=== PATIENT | female | born 1975 | race Two or more races ===

== ENCOUNTER 2017-02-27 19:44 | Emergency (ER) | payer OTHER ==
[2017-02-27 19:49] VITALS: BP 114/71; PULSE 80; TEMP 97.7; BMI 34.3
--- NOTE | 2017-02-27 19:51 | PDOC ---
Rapid Medical Evaluation Chief Complaint: Chest Pain Time Seen by Provider: 02/27/17 19:47 Medical Evaluation: Allergies Allergy/AdvReac Type Severity Reaction Status Date / Time No Known Allergies Allergy Verified 02/27/17 19:46 02/27/17 19:49 Healthy 41 year old female presenting with one week of constant chest pain radiating to the right arm, associated with nausea and "sudden headaches." Does not seem related to exertion. Describes pain as burning, pinching. V/s unremarkable. -EKG -CXR -Cardiac labs, lipase -To Main ED for further evaluation
[2017-02-27 20:34] LABS: BASOPHIL 0.6 % (0-2.0); EOSINOPHIL 3.9 % (0-4.5); MCH 29.1 pg (25.7-33.7); MCHC 32.4 g/dl (32.0-36.0); MEAN CELL VOLUME 89.7 fl (80-96); MEAN PLT VOLUME 8.5 fl (7.5-11.1); NEUTROPHILS 58.7 % (42.8-82.8); PLATELET COUNT 294 K/MM3 (134-434); RDW 13.4 % (11.6-15.6); WHITE BLOOD COUNT 10.4 K/mm3 (4.0-10.0)
[2017-02-27 20:38] LABS: URINE APPEARANCE CLEAR; URINE BILIRUBIN NEGATIVE (NEGATIVE); URINE COLOR LTYELLOW; URINE GLUCOSE (UA) NEGATIVE (NEGATIVE); URINE KETONE NEGATIVE (NEGATIVE); URINE LEUK ESTERASE NEGATIVE (NEGATIVE); URINE NITRITE NEGATIVE (NEGATIVE); URINE PROTEIN NEGATIVE (NEGATIVE); URINE UROBILINOGEN NEGATIVE E.U./dl (0.2-1.0)
[2017-02-27] MEDS ORDERED: RANITIDINE HCL 150 MG TABLET (FP) PO ONE (20:40)
[2017-02-27] MEDS ORDERED: MAG HYDROX/AL HYDROX/SIMETH 30 ML UNIT-DOSE CUP PO ONE (20:40)
[2017-02-27 20:43] LABS: URINE BLOOD 1+ (NEGATIVE)
--- NOTE | 2017-02-27 20:43 | PDOC ---
History of Present Illness - General History Source: Patient Exam Limitations: No Limitations - History of Present Illness Initial Comments: 02/27/17 20:44 The patient is a 41 year old female, LMP Jan 20 2017, with no significant past medical history, who presents to the ER with chest discomfort for one week. Patient describes the discomfort as a burning sensation. She says she feels like a knife is pinching her chest. Patient says she occasionally has a sensation of itchiness that goes down to the right arm. Patient says she also has accompanied bitter taste in mouth with accompanied belching. Denies heart palpitations Denies diaphoresis Denies fever, chills, cough Denies abdominal pain, nausea, vomiting Social Hx: Patient states she smoked half a pack of cigarettes a day and quit one month ago. Patient says she smokes during stress. <Marylou Farooq - Last Filed: 02/27/17 20:55> <Lauro Motley - Last Filed: 02/27/17 21:17> <Heidi Stanley - Last Filed: 03/01/17 00:24> - General Chief Complaint: Chest Pain Stated Complaint: CHEST PAIN Time Seen by Provider: 02/27/17 19:47 Past History <Marylou Farooq - Last Filed: 02/27/17 20:55> <Lauro Motley - Last Filed: 02/27/17 21:17> - Past Medical History Other medical history: denies - Immunization History Immunization Up to Date: Yes - Psycho/Social/Smoking Cessation Hx Suicidal Ideation: No Smoking History: Former smoker Have you smoked in the past 12 months: Yes Number of Cigarettes Smoked Daily: 5 If you are a former smoker, when did you quit?: 1 month ago Information on smoking cessation initiated: No Hx Alcohol Use: No Drug/Substance Use Hx: No <Heidi Stanley - Last Filed: 03/01/17 00:24> - Past Medical History Allergies/Adverse Reactions: Allergies Allergy/AdvReac Type Severity Reaction Status Date / Time No Known Allergies Allergy Verified 02/27/17 19:46 Home Medications: Ambulatory Orders NK [No Known Home Medication] 02/28/17 Pantoprazole Sodium [Protonix -] 20 mg PO DAILY #14 tablet.ec 02/28/17 Abd/GI Specific PMHX - Complaint Specific PMHX Colitis: No Diverticulitis: No Gall Bladder Disease: No GERD: No Hepatitis: No Irritable Bowel Synd (IBS): No Pancreatitis: No GI Ulcer Disease: No <Heidi Stanley - Last Filed: 03/01/17 00:24> Review of Systems - Review of Systems Able to Perform ROS?: Yes Comments:: 02/27/17 20:44 CONSTITUTIONAL: Absent: fever, no chills, no fatigue EYES: Absent: visual changes ENT: Present: (+) bitter taste in mouth, belching Absent: ear pain, no sore throat CARDIOVASCULAR: Present: (+) chest discomfort Absent: no palpitations RESPIRATORY: Absent: cough, no SOB GI: Absent: abdominal pain, no nausea, no vomiting, no constipation, no diarrhea GENITOURINARY: Absent: dysuria, no frequency, no hematuria MUSCULOSKELETAL: Absent: back pain, no arthralgia, no myalgia SKIN: Absent: rash NEURO: Absent: headache <Uts,Marylou - Last Filed: 02/27/17 20:55> *Physical Exam - Vital Signs Last Vital Signs Temp Pulse Resp BP Pulse Ox 97.7 F 80 18 114/71 98 02/27/17 19:47 02/27/17 19:47 02/27/17 19:47 02/27/17 19:47 02/27/17 19:47 - Physical Exam Comments: 02/27/17 20:45 GENERAL: Well-appearing, well-nourished. No apparent distress. HEENT: Normocephalic, atraumatic. PERRL, EOM intact. CARDIOVASCULAR: Normal S1, S2. Regular rate and rhythm. PULMONARY: Clear to auscultation bilaterally. ABDOMEN: Soft, non-distended, non-tender. EXTREMITIES: Normal ROM in all four extremities. No gross deformities. SKIN: Warm, dry. No rash NEUROLOGICAL: No focal neurological deficits. <Uts,Marylou - Last Filed: 02/27/17 20:55> - Vital Signs Last Vital Signs Temp Pulse Resp BP Pulse Ox 97.7 F 80 18 114/71 98 02/27/17 19:47 02/27/17 19:47 02/27/17 19:47 02/27/17 19:47 02/27/17 19:47 <Lauro Motley - Last Filed: 02/27/17 21:17> - Vital Signs Last Vital Signs Temp Pulse Resp BP Pulse Ox 97.7 F 80 18 114/71 98 02/27/17 19:47 02/27/17 19:47 02/27/17 19:47 02/27/17 19:47 02/27/17 19:47 <Heidi Stanley - Last Filed: 03/01/17 00:24> ED Treatment Course - LABORATORY CBC & Chemistry Diagram: 02/27/17 20:20 02/27/17 20:20 - ADDITIONAL ORDERS Additional order review: Laboratory Results 02/27/17 20:20 Urine Color Ltyellow Urine Appearance Clear Urine pH 5.0 Urine Protein Negative Urine Glucose (UA) Negative Urine Ketones Negative Urine Blood 1+ H Urine Nitrite Negative Urine Bilirubin Negative Urine Urobilinogen Negative Ur Leukocyte Esterase Negative 02/27/17 20:20 RBC 4.05 MCV 89.7 MCHC 32.4 RDW 13.4 MPV 8.5 Neutrophils % 58.7 Lymphocytes % 30.0 Monocytes % 6.8 Eosinophils % 3.9 Basophils % 0.6 <UtsMarylou - Last Filed: 02/27/17 20:55> - LABORATORY CBC & Chemistry Diagram: 02/27/17 20:20 02/27/17 20:20 - ADDITIONAL ORDERS Additional order review: Laboratory Results 02/27/17 02/27/17 20:20 20:20 INR 1.04 Urine Color Ltyellow Urine Appearance Clear Urine pH 5.0 Urine Protein Negative Urine Glucose (UA) Negative Urine Ketones Negative Urine Blood 1+ H Urine Nitrite Negative Urine Bilirubin Negative Urine Urobilinogen Negative Ur Leukocyte Esterase Negative Urine RBC 3 Urine WBC 3 Ur Epithelial Cells Rare Urine Bacteria Rare Urine Mucus Rare Urine HCG, Qual Negative 02/27/17 20:20 RBC 4.05 MCV 89.7 MCHC 32.4 RDW 13.4 MPV 8.5 Neutrophils % 58.7 Lymphocytes % 30.0 Monocytes % 6.8 Eosinophils % 3.9 Basophils % 0.6 - RADIOLOGY Radiology Studies Ordered: 02/27/17 21:17 CHEST X RAY Impression: Normal Chest Reported by Cristian Franco <Lauro Motley - Last Filed: 02/27/17 21:17> - LABORATORY CBC & Chemistry Diagram: 02/27/17 20:20 02/27/17 20:20 - ADDITIONAL ORDERS Additional order review: 02/27/17 20:20 RBC 4.05 MCV 89.7 MCHC 32.4 RDW 13.4 MPV 8.5 Neutrophils % 58.7 Lymphocytes % 30.0 Monocytes % 6.8 Eosinophils % 3.9 Basophils % 0.6 <Heidi Stanley - Last Filed: 03/01/17 00:24> Medical Decision Making - Medical Decision Making 03/01/17 00:23 41-year-old female who presented with atypical chest pain and also complained of burning over the past several days in her sternal area. She had 2 sets of negative cardiac enzymes. Her EKG did not show any acute signs of ischemia. She was started on PPIs and sent to her primary care physician for further GI workup <Heidi Stanley - Last Filed: 03/01/17 00:24> *DC/Admit/Observation/Transfer - Attestations Scribe Attestion: 02/27/17 20:45 Documentation prepared by Marylou Farooq, acting as pediatric medical assistant for Heidi Stanley MD. <Marylou Farooq - Last Filed: 02/27/17 20:55> - Attestations Scribe Attestion: 02/27/17 21:17 Documentation prepared by Lauro Motley, acting as pediatric medical assistant for Heidi Stanley MD <Lauro Motlye - Last Filed: 02/27/17 21:17> <Heidi Stanley - Last Filed: 03/01/17 00:24> Diagnosis at time of Disposition: Atypical chest pain Acid reflux Qualifiers: Esophagitis presence: with esophagitis Qualified Code(s): K21.0 - Gastro- esophageal reflux disease with esophagitis - Discharge Dispostion Disposition: HOME Condition at time of disposition: Stable - Prescriptions Prescriptions: Pantoprazole Sodium [Protonix -] 20 mg PO DAILY #14 tablet.ec - Patient Instructions Printed Discharge Instructions: DI for Atypical Chest Pain, DI for Gastroesophageal Reflux Disease (GERD) Additional Instructions: Please followup with your physician Please oyster picker your medication at your pharmacy
[2017-02-27 20:44] LABS: URINE BACTERIA RARE /hpf (NONE SEEN); URINE MUCUS RARE; URINE RBC 3 /hpf (0-3); URINE WBC 3 /hpf (3-5)
[2017-02-27 20:47] LABS: INR 1.04 (0.82-1.09); PROTHROMBIN TIME (PATIENT) 11.4 SEC (9.98-11.88)
[2017-02-27 21:12] LABS: ALBUMIN 3.6 g/dl (3.4-5.0); ANION GAP 7 (8-16); CALCIUM 8.8 mg/dL (8.5-10.1); CO2 28 mmol/L (21-32); COCKROFT - GAULT 149.9315; CREATININE 0.7 mg/dL (0.55-1.02); GLUCOSE,RANDOM 99 mg/dL (74-106); SGOT/AST 13 U/L (15-37); SGPT/ALT 20 U/L (12-78)
[2017-02-27 21:17] LABS: ALK PHOS 56 U/L (45-117); BILIRUBIN,TOTAL 0.2 mg/dL (0.2-1.0); TOT PROT 7.4 g/dl (6.4-8.2); TROPONIN I < 0.02 ng/ml (0.00-0.05)
[2017-02-27] MEDS ORDERED: MAG HYDROX/AL HYDROX/SIMETH 30 ML UNIT-DOSE CUP ONE (23:17)
[2017-02-27] MEDS ORDERED: RANITIDINE HCL 150 MG TABLET (FP) ONE (23:17)
[2017-02-28 01:24] LABS: TROPONIN I < 0.02 ng/ml (0.00-0.05)
--- NOTE | 2017-02-28 11:49 | EKG ---
Test Reason : Blood Pressure : / mmHG Vent. Rate : 074 BPM Atrial Rate : 074 BPM P-R Int : 164 ms QRS Dur : 084 ms QT Int : 376 ms P-R-T Axes : 037 023 023 degrees QTc Int : 417 ms NORMAL SINUS RHYTHM NORMAL ECG NO PREVIOUS ECGS AVAILABLE Confirmed by TASHA KENDRICK MD ([id number]) on 02/28/2017 11:49:30 AM Referred By: JARRELL Confirmed By:TASHA KENDRICK MD
== END 2017-02-28 01:52 | disposition home or self-care (01) ==
LOC: JER 19:44
DX: R07.89 Other chest pain (principal); K21.0 Gastro-esophageal reflux disease with esophagitis
CPT/HCPCS: 36415; 71020-TC; 80053; 81003; 81015; 82550; 83690; 84484; 84703; 85025; 85610; 93005; 93010; 99281-25